=== PATIENT | female | born 2000 | race Caucasian/White ===

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

== ENCOUNTER 2018-07-30 19:16 | Outpatient (CLI) | payer MEDICAID ==
[~2018-07-30] VITALS: Ht 152.4 cm; Wt 70.0 kg
--- NOTE | 2018-07-30 19:36 | NUR ---
URINE SENT TO LAB
[2018-07-30 19:40] LABS: APPEARANCE CLEAR (CLEAR); BILIRUBIN NEGATIVE (NEGATIVE); COLOR YELLOW (YELLOW); GLUCOSE NEGATIVE (NEGATIVE); KETONE NEGATIVE (NEGATIVE); NITRITE NEGATIVE (NEGATIVE); PROTEIN NEGATIVE (NEGATIVE); SPECIFIC GRAVITY 1.015 (1.005-1.020); UROBILINOGEN NORMAL (NORMAL)
[2018-07-30 19:52] LABS: BASOPHILS 0.2 % (0-2); HEMATOCRIT 38.1 % (36.0-48.0); HEMOGLOBIN 13.7 g/dL (12-16); IMMATURE GRANULOCYTES 0.2 % (0-5); LYMPHOCYTES 24.5 % (15-50); MCH 31.6 pg (26.0-34.0); MCV 87.8 fL (80.0-100.0); MEAN PLATELET VOLUME 9.2 fL (7.4-10.4); MONOCYTES 7.5 % (2-11); NEUTROPHILS 66.6 % (40-80); PLATELET COUNT 219 10x3/uL (130-400); RBC 4.34 10x6/uL (4.00-5.40); RDW 12.5 % (11.5-14.5); WBC 12.1 10x3/uL (4.8-10.8)
[2018-07-30 20:03] LABS: APTT 25.4 SECONDS (22.8-39.4); INR 1.06 (0.85-1.17); PROTIME 13.3 SECONDS (11.6-15.0)
[2018-07-30 20:04] LABS: D-DIMER-QUANTITATIVE 0.51 ug/mLFEU (0.20-0.54)
--- NOTE | 2018-07-30 20:05 | NUR ---
RT IN ROOM TO DRAW ABG'S
[2018-07-30 20:08] LABS: ALBUMIN 3.5 g/dL (3.4-5.0); ALKALINE PHOSPHATASE 71 U/L (46-116); ALT (SGPT) 25 U/L (10-68); BILIRUBIN - TOTAL 0.38 mg/dL (0.2-1.3); CALC OSMOLALITY 269 mosm/kg (275-300); CALCIUM 9.3 mg/dL (8.5-10.1); CARBON DIOXIDE 23.9 mmol/L (21.0-32.0); CHLORIDE - SERUM 102 mmol/L (98-107); CREATININE - SERUM 0.6 mg/dL (0.6-1.3); GLUCOSE 81 mg/dL (74-106); POTASSIUM - SERUM 3.4 mmol/L (3.5-5.1); PROTEIN - SERUM 7.2 g/dL (6.4-8.2); SODIUM 137 mmol/L (136-145); UREA NITROGEN 4 mg/dL (7-18); eGFR NON AFRICAN AMERICAN > 90 mL/min (90-120)
[2018-07-30 20:42] LABS: CKMB 0.5 U/L (0.0-3.6); CREATINE KINASE 53 UL (21-215); HCG - QUANTITATIVE (MATERNAL) 71101 mIU/mL; PRO BNP 36 pg/mL (0-125)
[2018-07-30 20:47] LABS: TROPONIN-I < 0.017 ng/mL (0.000-0.060)
[2018-07-30 23:26] VITALS: BP 139/78; Ht 152.4 cm; Wt 70.0 kg
[2018-07-31 07:33] LABS: BASOPHILS 0.2 % (0-2); EOSINOPHILS 1.5 % (0-7); HEMATOCRIT 36.2 % (36.0-48.0); IMMATURE GRANULOCYTES 0.2 % (0-5); LYMPHOCYTES 27.1 % (15-50); MCH 31.3 pg (26.0-34.0); MCHC 35.9 g/dL (31.0-37.0); MEAN PLATELET VOLUME 9.1 fL (7.4-10.4); MONOCYTES 8.6 % (2-11); NEUTROPHILS 62.4 % (40-80); PLATELET COUNT 228 10x3/uL (130-400); RBC 4.16 10x6/uL (4.00-5.40); RDW 12.6 % (11.5-14.5); WBC 10.1 10x3/uL (4.8-10.8)
[2018-07-31 08:12] LABS: ALBUMIN 3.2 g/dL (3.4-5.0); ALKALINE PHOSPHATASE 66 U/L (46-116); ALT (SGPT) 26 U/L (10-68); CALC OSMOLALITY 275 mosm/kg (275-300); CALCIUM 9.1 mg/dL (8.5-10.1); CARBON DIOXIDE 23.8 mmol/L (21.0-32.0); CHLORIDE - SERUM 105 mmol/L (98-107); CREATININE - SERUM 0.6 mg/dL (0.6-1.3); GLUCOSE 83 mg/dL (74-106); POTASSIUM - SERUM 3.8 mmol/L (3.5-5.1); PROTEIN - SERUM 6.7 g/dL (6.4-8.2); SODIUM 140 mmol/L (136-145); eGFR NON AFRICAN AMERICAN > 90 mL/min (90-120)
[2018-07-31 08:16] LABS: UREA NITROGEN 7 mg/dL (7-18)
--- NOTE | 2018-07-31 11:10 | NUR ---
dr cespedes calls about consult. states that he will see pt when he can that he is in icu. states if pt is discharged before he sees her she can follow up in office.
--- NOTE | 2018-07-31 11:22 | NUR ---
resting with lights out in room.
== END 2018-07-31 15:50 | disposition home or self-care (01) ==
LOC: OBSVTIME → D.LDO 19:16 → D.ER 19:16 → OBSVTIME 21:07 → D.ER 21:07 → D.LD 21:07 → D.LDO 22:45 → D.ER 22:45 → EDSTATUS 07-31 09:59 → D.LD 07-31 12:11 → D.LDO 07-31 15:50
PROVIDERS: ATTEND Family Medicine
DX: O26.899 Other specified pregnancy related conditions, unspecified trimester (principal); Z3A.00 Weeks of gestation of pregnancy not specified

== ENCOUNTER → 2018-10-16 17:48 | Outpatient (CLI) | payer MEDICAID ==
[2018-07-30 23:26] VITALS: BMI 30.1
== END | disposition home or self-care (01) ==
LOC: D.LDO 17:48
PROVIDERS: ATTEND Student in an Organized Health Care Education/Training Program
DX: O26.892 Other specified pregnancy related conditions, second trimester (principal); Z3A.22 22 weeks gestation of pregnancy; R06.02 Shortness of breath

== ENCOUNTER 2019-01-14 03:19 | Inpatient (IN) | payer MEDICAID ==
[~2019-01-14] VITALS: Ht 152.4 cm; Wt 73.2 kg
[2019-01-14 05:11] VITALS: BP 134/79; Ht 152.4 cm; Wt 73.2 kg
[2019-01-14 05:12] LABS: HEMATOCRIT 38.5 % (36.0-48.0); HEMOGLOBIN 13.5 g/dL (12-16); MCHC 35.1 g/dL (31.0-37.0); MCV 91.2 fL (80.0-100.0); MEAN PLATELET VOLUME 9.6 fL (7.4-10.4); RBC 4.22 10x6/uL (4.00-5.40); RDW 12.7 % (11.5-14.5)
[2019-01-14 05:39] LABS: APPEARANCE CLEAR (CLEAR); BILIRUBIN NEGATIVE (NEGATIVE); COLOR YELLOW (YELLOW); GLUCOSE NEGATIVE (NEGATIVE); KETONE NEGATIVE (NEGATIVE); NITRITE NEGATIVE (NEGATIVE); PROTEIN 1+ mg/dL (NEGATIVE); UROBILINOGEN NORMAL (NORMAL)
[2019-01-14 05:40] LABS: BACTERIA FEW /hpf (NEGATIVE); EPITHELIAL CELLS 0-5 /hpf (0-5); RED CELLS - URINE 0-5 /hpf (0-5); WHITE CELLS - URINE 0-5 /hpf (NEGATIVE)
--- NOTE | 2019-01-14 07:33 | NUR ---
IN ROLE AND NPC WHITE SUGAR SUPERVISOR TODAY. TALKED WITH PATIENT TO OBTAIN PERMISSION FOR DIRECTOR OF INDIVIDUAL GIVING TO ASSIST PT PRIMARY NURSE DURING LABOR AND WATCH DELIVERY OF , EXPLAINING THAT DIRECTOR OF INDIVIDUAL GIVING WILL BE IN OBSERVATION ROLE AND WILL REVIEW PATIENT RECORDS. PT VERBALLY CONSENTS TO DIRECTOR OF INDIVIDUAL GIVING AT THIS TIME.
--- NOTE | 2019-01-14 07:43 | NUR ---
IN ROLE [employer] FROM [facility]. ASKED PATIENT IF OK IF RN DIESEL POWERPLANT MECHANIC HELPER FOLLOWS HER PRIMARY RN TODAY AND DID CHART REVIEW. PT CONSENTS TO STUDENT FOLLOWING PRIMARY RN AND REVIEWING MEDICAL RECORDS. PT REQUESTS NO STUDENTS IN ROOM AT TIME OF DELIVERY.
[2019-01-14 08:11] LABS: CALC OSMOLALITY 270 mosm/kg (275-300); CALCIUM 9.7 mg/dL (8.5-10.1); CARBON DIOXIDE 21.1 mmol/L (21.0-32.0); CHLORIDE - SERUM 103 mmol/L (98-107); CREATININE - SERUM 0.5 mg/dL (0.6-1.3); GLUCOSE 93 mg/dL (74-106); POTASSIUM - SERUM 3.5 mmol/L (3.5-5.1); SODIUM 137 mmol/L (136-145); UREA NITROGEN 3 mg/dL (7-18); eGFR NON AFRICAN AMERICAN > 90 mL/min (90-120)
[2019-01-14 08:15] LABS: ALBUMIN 2.8 g/dL (3.4-5.0); ALKALINE PHOSPHATASE 245 U/L (46-116); ALT (SGPT) 44 U/L (10-68); BILIRUBIN - DIRECT 0.31 mg/dL (0.00-0.30); BILIRUBIN - INDIRECT 0.34 mg/dL (0.00-1.00); BILIRUBIN - TOTAL 0.65 mg/dL (0.2-1.3); PROTEIN - SERUM 6.4 g/dL (6.4-8.2); URIC ACID 4.3 mg/dL (2.6-7.2)
--- NOTE | 2019-01-14 13:00 | NUR ---
pt to room 1220 -ambulatory from l&d. oriented to room. vs done. ice water given- denies other needs.
[2019-01-14 13:16] VITALS: BP 144/89
--- NOTE | 2019-01-14 13:21 | NUR ---
fundus uu with massage- firm. small lochia noted- no clots. baby to room.
[2019-01-14 14:00] VITALS: BP 139/89
--- NOTE | 2019-01-14 14:00 | NUR ---
VS DONE. FUNDUS MASSAGED WITH MOD LOCHIA- NO CLOTS. FUNDUS SL TO RT SIDE. ASK IF FELT LIKE SHE COULD VOID AND STATES NO BUT IS GOING TO BATHROOM TO TRY. VOIDED 900CC INTO CONTAINER. PERICARE DONE WITH BETADINE AND WARM WATER. BACK TO BED. FUNDUS U2 AND MIDLINE WITH MASSAGE- SCANT LOCHIA.
--- NOTE | 2019-01-14 15:59 | NUR ---
talking with visitors. fundus u1 firm with massage- no clots. denies needs.
[2019-01-14 16:00] VITALS: BP 138/74
--- NOTE | 2019-01-14 18:03 | NUR ---
UP TO BATHROOM- VOIDED 800CC. PERICARE DONE- DENIES NEEDS.
--- NOTE | 2019-01-14 18:55 | NUR ---
THIS RN AND ASHLEE MARTINEZ RN RECEIVED SHIFT REPORT FROM ETHAN BIANCHI RN
[2019-01-14 19:20] VITALS: BP 130/87
--- NOTE | 2019-01-14 19:20 | NUR ---
ASSESSMENT PER FLOW SHEET, VS OBTAINED, SALINE LOCK IN LEFT WRIST INTACT WITH NO REDNESS OR EDEMA, FF, ML, U/1, PT REPORTS LIGHT BLEEDING WITH NO CLOTS, PT REPORTS FLATUS, NO BM AND VOIDING WITH NO DIFFICULTY, PT DENIES PAIN, REQUESTED AND SERVED FRESH H20, DENIES FURTHER NEEDS, DINNER TRAY REMOVED, FOB AND FAMILY AT BEDSIDE, FEMALE FAMILY MEMBER HOLDING INFANT
--- NOTE | 2019-01-14 20:13 | NUR ---
PT AT THIS TIME, DENIES NEEDS OR PAIN AT THIS TIME, FOB AND FAMILY AT BEDSIDE
--- NOTE | 2019-01-14 21:09 | NUR ---
PT EATING BURGER, DENIES PAIN, REQUESTED AND PROVIDED BEDDING FOR FOB, DENIES FURTHER NEEDS, IN OPEN CRIB CART AND FOB AT BEDSIDE ASLEEP
--- NOTE | 2019-01-14 22:26 | NUR ---
PT HOLDING INFANT, ADM TYLENOL PER MD ORDERS, SEE EMAR, PT DENIES NEEDS AT THIS TIME, FOB ASLEEP AT BEDSIDE
--- NOTE | 2019-01-15 00:10 | NUR ---
PT SUPERVISOR EVAPORATOR LIGHT, PT REQUESTED AND PROVIDED EXTRA BLANKETS, DENIES FURTHER NEEDS OR PAIN, FOB AND FAMILY AT BEDSIDE
--- NOTE | 2019-01-15 02:30 | NUR ---
PT RESTING WITH EYES CLOSED, RESP QUIET, NO DISTRESS NOTED, LEFT UNDISTURBED AT THIS TIME, FOB ASLEEP IN RECLINER
--- NOTE | 2019-01-15 04:08 | NUR ---
PT AWAKE, HOLDING INFANT, ADM TYLENOL PO PER MD ORDERS, SEE EMAR, WITH FRESH H20, DENIES FURTHER NEEDS, FOB ASLEEP AT BEDSIDE
[2019-01-15 07:13] LABS: RAPID PLASMA REAGIN Non Reactive (Non Reactive)
--- NOTE | 2019-01-15 10:25 | NUR ---
IV D/C'D. CATHETER INTACT. PRESSURE APPLIED. NO BLEEDING NOTED. BANDAGE APPLIED OVER INSERTION SITE.
--- NOTE | 2019-01-15 11:00 | NUR ---
PATIENT UP TO SHOWER.
--- NOTE | 2019-01-15 16:40 | NUR ---
DISCHARGE TEACHING COMPLETED WITH PATIENT REGARDING VAGINAL DELIVERY, POST DEPRESSION, AND BREAST CARE FOR THE WOMAN. STATES UNDERSTANDING. FOLLOW-UP APPOINTMENT INFORMATION GIVEN. ROOMING-IN POLICY REVIEWED WITH PATIENT. STATES UNDERSTANDING. FORMS SIGNED AND WITNESSED.
== END 2019-01-15 16:50 | disposition home or self-care (01) | DRG 807 ==
LOC: D.LDO 03:19 → D.WS 03:50 → D.LD 03:50 → D.WS 13:00
PROVIDERS: ADMIT Obstetrics & Gynecology; ATTEND Obstetrics & Gynecology
PROC: 10E0XZZ Delivery of Products of Conception, External Approach (ICD-10-PCS; principal; 2019-01-14)
DX: O60.14X0 Preterm labor third trimester with preterm delivery third trimester, not applicable or unspecified (principal); Z37.0 Single live birth; O75.89 Other specified complications of labor and delivery; O70.0 First degree perineal laceration during delivery; Z3A.36 36 weeks gestation of pregnancy